=== PATIENT | male | born 1960 | race Caucasian/White ===

== ENCOUNTER 2017-07-11 09:05 | Day surgery (SDC) | payer MEDICAID ==
[2017-07-11 09:56] VITALS: O2SAT 100
[2017-07-11 09:58] VITALS: BMI 27.8
[2017-07-11] MEDS ORDERED: Propofol 10 mg/ml Inj (20 ML) ONE (11:55)
[2017-07-11 12:12] VITALS: RESP 14
[2017-07-11 13:15] VITALS: BP 138/75; PULSE 71; TEMP 97.4
== END 2017-07-11 13:10 | disposition home or self-care (01) ==
LOC: C.ENDO 09:05
PROVIDERS: ATTEND Internal Medicine Gastroenterology
DX: Z12.11 Encounter for screening for malignant neoplasm of colon (principal); D12.0 Benign neoplasm of cecum; K64.8 Other hemorrhoids
CPT/HCPCS: 45380; 82948; 88305; J2704

== ENCOUNTER 2018-05-23 11:38 | Outpatient (CLI) | payer MEDICAID | END 2018-05-23 11:39 | disposition home or self-care (01) | LOC: C.LAB 11:38 | DX: N18.3 Chronic kidney disease, stage 3 (moderate) (principal) ==